=== PATIENT | female | born 1985 | race African-American/Black ===

== ENCOUNTER 2019-09-30 19:33 | Observation (INO) | payer MEDICAID ==
[2019-09-30] MEDS ORDERED: PNV1TABL50 PO (20:49)
== END 2019-09-30 21:05 | disposition home or self-care (01) ==
LOC: 8 EST LDRP 19:33
PROVIDERS: ADMIT Obstetrics & Gynecology; ATTEND Specialist
DX: O26.852 Spotting complicating pregnancy, second trimester (principal); Z3A.22 22 weeks gestation of pregnancy
CPT/HCPCS: 59025; G0378; 99281